=== PATIENT | female | born 1955 | race Caucasian/White ===

== ENCOUNTER 2023-09-02 07:04 | Day surgery (SDC) | payer OTHER ==
[~2023-09-02] VITALS: Ht 162.6 cm; Wt 54.4 kg
[2023-09-02] MEDS ORDERED: LIDOCAINE 2% 100 MG/5 ML UJET TP ONE (07:56)
[2023-09-02] MEDS: KETOROLAC 30 MG/ML VIAL ONE (08:09)
[2023-09-02] MEDS: EPINEPHrine PFS 0.1 MG/ML SYR IVP ONE (08:42)
== END 2023-09-02 10:00 | disposition home or self-care (01) ==
LOC: MMU 07:04 → MOR 07:04
PROVIDERS: ATTEND Internal Medicine Gastroenterology
DX: Z12.11 Encounter for screening for malignant neoplasm of colon (principal); K57.30 Diverticulosis of large intestine without perforation or abscess without bleeding; K64.8 Other hemorrhoids; K63.5 Polyp of colon; I10 Essential (primary) hypertension; Z86.010 Personal history of colon polyps; Z88.0 Allergy status to penicillin; Z79.899 Other long term (current) drug therapy; Z98.890 Other specified postprocedural states
CPT/HCPCS: 45381; 45385; 88305; J0171; J1885